=== PATIENT | male | born 1995 ===

== ENCOUNTER 2017-08-18 23:29 | Emergency (ER) | payer OTHER ==
[2017-08-19] MEDS ORDERED: Tdap Vaccine 0.5 ml Vial (10-64 yrs) IM ONE ×2 (00:23→00:53)
[2017-08-19] MEDS ORDERED: ceFAZolin 1 GM in Sodium Chloride 0.9% 100 ML IVPB ONE (00:23)
--- NOTE | 2017-08-19 00:26 | ED PDOC ---
Upper Extremity Pain/Injury Time Seen by Provider: 08/19/17 00:24 Chief Complaint (Nursing): Finger,Hand,&Wrist Chief Complaint (Provider): FINGER LACERATION History Per: Patient (22 Y/O MALE HERE WITH INJURY TO LEFT HAND THAT OCCURRED WHEN HE CUT HIS HAND WITH ALUMINUM CAN WHILE TAKING OUT GARBAGE. UNSURE OF TETANUS STATUS. IS RIGHT HAND DOMINANT.) Past Medical History Reviewed: Historical Data, Nursing Documentation, Vital Signs Vital Signs: Last Vital Signs Temp 98.2 F 08/18/17 23:39 Pulse 84 08/18/17 23:39 Resp 16 08/18/17 23:39 BP 132/84 08/18/17 23:39 Pulse Ox 98 08/18/17 23:39 - Family History Family History: States: No Known Family Hx - Home Medications Home Medications: Ambulatory Orders Medication Instructions Recorded Cephalexin [Keflex] 500 mg PO QID #28 capsule 08/19/17 - Allergies Allergies/Adverse Reactions: Allergies Allergy/AdvReac Type Severity Reaction Status Date / Time No Known Allergies Allergy Verified 08/18/17 23:39 Review of Systems ROS Statement: Except As Marked, All Systems Reviewed And Found Negative Physical Exam - Reviewed Nursing Documentation Reviewed: Yes Vital Signs Reviewed: Yes - Physical Exam Appears: Positive for: Well, Non-toxic, No Acute Distress Head Exam: Positive for: ATRAUMATIC, NORMAL INSPECTION, NORMOCEPHALIC Skin: Positive for: Normal Color, Warm, DRY Eye Exam: Positive for: EOMI, Normal appearance, PERRL ENT: Positive for: Normal ENT Inspection Neck: Positive for: Normal, Painless ROM Cardiovascular/Chest: Positive for: Regular Rate, Rhythm Respiratory: Positive for: CNT, Normal Breath Sounds Gastrointestinal/Abdominal: Positive for: Normal Exam, Soft Back: Positive for: Normal Inspection Extremity: Positive for: Normal ROM, Other (1.0 CM LACERATION DIP FIFTH DIGIT EXTENSOR SURFACE. UNABLE TO EXTEND DIP.) Neurologic/Psych: Positive for: Alert, Oriented - ECG O2 Sat by Pulse Oximetry: 98 - Progress ED Course And Treament: TDAP 0.5 ML IM X 1 DOSE ANCEF 1 GM IV X 1 DOSE D/W DR. LUNA. WE WILL SUTURE WOUND EXTERNAL AND PLACE IN FINGERSPLINT. PATIENT TO CALL OFFICE SATURDAY TO ARRANGE FOR OFFICE VISIT Disposition - Clinical Impression Clinical Impression: Extensor tendon laceration of finger with open wound - Patient ED Disposition Is Patient to be Admitted: No - Disposition Referrals: Luci Luna MD [Staff Provider] - Disposition: Routine/Home Disposition Time: :55 Condition: FAIR Prescriptions: Cephalexin [Keflex] 500 mg PO QID #28 capsule Instructions: Tendon Laceration (DC) Forms: [facility] ([facility]) Procedure: Wound Repair - Time Performed Time Performed: :53 - Time Out Time Out: Site verified - Consent Obtained Consent obtained: Verbal - Performed by Performed by: Mid-level Provider - Indications Indication(s):: Laceration - Location Location:: Left, Hand Finger:: Little Shape:: Linear Dimensions Length cm: 1.0cm Depth:: Epidermis - Anesthetic Technique Anesthetic Technique: Local Local/Regional Anesthetic:: Lidocaine 1% - Irrigated Irrigated with ml of normal saline: 100ml - Complexity Complexity:: Simple (one layer) - Wound repair method Sutures:: # (three), Size (4-0), Type (nylon), Technique (interrupted) - Muscle repiar layer closed with Muscle repair layer closed with:: Tetanus ordered - Patient tolerated procedure Patient Tolerated Procedure:: Well
[2017-08-19] MEDS ORDERED: Lidocaine 1% Inj (20ml) INFIL ONE (00:36)
[2017-08-19] MEDS ORDERED: Lidocaine 1% Inj (20ml) ONE (00:54)
[2017-08-19 02:06] VITALS: BP 118/78; PULSE 76; RESP 18; TEMP 98; O2SAT 100
--- NOTE | 2017-08-19 09:26 | RAD ---
PROCEDURE: Left small finger radiographs. HISTORY: HAND INJURY COMPARISON: None. TECHNIQUE: AP radiograph of the left hand, as well as spot oblique and lateral images of left small finger were obtained. FINDINGS: LEFT SMALL FINGER: Left small finger normal, without fracture of focal lesion. Remainder of the left hand (as seen on the AP view) is grossly unremarkable. JOINTS: The distal interphalangeal joint appears in flexion with soft tissue injury injury identified in the dorsal soft tissues low at the level of the DIP joint consider potential tendon injury. SOFT TISSUES: As above. OTHER FINDINGS: None. IMPRESSION: No acute fracture or destructive bony lesion identified at the left small finger. Extensor tendon injury is not excluded given emphysematous soft tissue changes in the dorsal small finger at the level of the DIP joint and apparent mild flexion of the joint as well. Clinically correlate further.
== END 2017-08-19 02:36 | disposition home or self-care (01) ==
LOC: H.ER 23:29
DX: S66.329A Laceration of extensor muscle, fascia and tendon of unspecified finger at wrist and hand level, initial encounter (principal); W26.8XXA Contact with other sharp object(s), not elsewhere classified, initial encounter; Y93.E9 Activity, other interior property and clothing maintenance
CPT/HCPCS: 29130; 73140; 90471; 90715; 96374; 99283; J0690